=== PATIENT | female | born 1980 | race Caucasian/White ===

== ENCOUNTER 2017-03-13 17:05 | Inpatient (IN) | payer MEDICARE, OTHER ==
[~2017-03-13] VITALS: Ht 162.6 cm; Wt 65.9 kg
[~2017-03-13 17:05] MED LIST: AZAT50TA PO; CLON1TAB PO; DRON5CAP2 PO; HALO5TAB8 PO; HYDR200T4 PO; LIPA1CAP15 PO; MILN50TA PO; OXYC-34 PO; PANT20TA3 PO; PREG50CA PO; SERT50TA PO; VARE1TAB PO
--- NOTE | 2017-03-13 17:05 | NUR ---
BBRA 89 FOR HIGH BLOOD SUGAR "STATES HI" ON ACCUCHECK MACHINE. NAD NOTED. PT AAO X4, AMB WITH STEADY GAIT. RR EVEN AND UNLABORED. VSS. PENDING MD FERNANDEZ.
--- NOTE | 2017-03-13 17:45 | NUR ---
URINE OBTAINED SENT TO LAB
[2017-03-13] MEDS ORDERED: IV NS 0.9% 1,000 ML BAG IV ONE (18:00)
--- NOTE | 2017-03-13 18:07 | NUR ---
EKG AT BEDSIDE
[2017-03-13 18:20] LABS: BASOPHILS # (AUTO) 0.1 /CMM (0.0-0.2); BASOPHILS % (AUTO) 1.3 % (0.0-2.0); EOSINOPHILS % (AUTO) 0.5 % (0.0-6.0); HEMATOCRIT 36 % (33-45); HEMOGLOBIN 11.3 g/dL (11.5-14.8); LYMPHOCYTES # (AUTO) 1.7 /CMM (0.8-4.8); LYMPHOCYTES % (AUTO) 22.4 % (20.0-44.0); MEAN CORPUSCULAR HEMOGLOBIN 32 PG (26.0-33.0); MEAN CORPUSCULAR HGB CONC 31 g/dl (31.0-36.0); MEAN CORPUSCULAR VOLUME 102 fL (82-100); MONOCYTES # (AUTO) 0.7 /CMM (0.1-1.30); MONOCYTES % (AUTO) 8.7 % (2.0-12.0); NEUTROPHILS # (AUTO) 5.2 /CMM (1.8-8.9); NEUTROPHILS % (AUTO) 67.1 % (43.0-81.0); PLATELET COUNT (AUTO) 233 /CMM (150-450); RDW COEFFICIENT OF VARIATION 14.5 (11.5-15.0); RED BLOOD CELL COUNT(AUTO) 3.58 MIL/uL (4.0-5.2); WHITE BLOOD COUNT (AUTO) 7.7 K/uL (4.3-11.0)
[2017-03-13 18:35] LABS: INR 0.93 (0.87-1.13); PROTHROMBIN TIME 9.7 SECS (9.5-12.7)
[2017-03-13 18:37] LABS: MAGNESIUM 1.8 mg/dL (1.8-2.4); PHOSPHORUS 4.6 mg/dL (2.5-4.9)
[2017-03-13 18:50] LABS: ALANINE AMINOTRANSFERASE 47 U/L (12-78); ALBUMIN 3.3 g/dL (3.4-5.0); ALKALINE PHOSPHATASE 216 U/L (46-116); ASPARTATE AMINOTRANSFERASE 41 U/L (15-37); BILIRUBIN,DIRECT 0.1 mg/dL (0.0-0.2); BILIRUBIN,TOTAL 0.2 mg/dL (0.2-1.0); CALCIUM, SERUM 8.3 mg/dL (8.5-10.1); CARBON DIOXIDE 23 mmol/L (21-32); CHLORIDE 89 mmol/L (98-107); CREATININE 1.6 mg/dL (0.6-1.3); POTASSIUM 3.5 mmol/L (3.5-5.1); SODIUM SERUM 122 mmol/L (136-145); UREA NITROGEN, BLOOD 11 mg/dL (7-18)
--- NOTE | 2017-03-13 18:55 | NUR ---
RT AT BEDSIDE FOR ABG
[2017-03-13 18:57] LABS: GLUCOSE 732 mg/dL (74-106)
[2017-03-13 19:03] LABS: TOTAL PROTEIN, SERUM 6.9 g/dL (6.4-8.2)
[2017-03-13 19:09] LABS: ABG BASE EXCESS -3.7 mmol/L; ABG OXYGEN SATURATION 82.3 % (92.0-98.5); ABG PCO2 41.5 mmHg (35.0-45.0); ABG PO2 48.9 mmHg (75.0-100.0); AaDO2 51.1 mmHg; COHb 2.6 % (0.5-1.5); MetHb 0.1 % (0.0-1.5); O2Hb 80.1 % (94.0-97.0); SITE, ABG Left Femoral; VENT MODE, BG ROOM AIR
--- NOTE | 2017-03-13 19:13 | NUR ---
RT MD SHANTA PICKENS WITH VENOUS ABG RESULTS.
--- NOTE | 2017-03-13 19:27 | NUR ---
CALLED [employer], TURNER MACHINE OPERATOR WAS PAGED.
[2017-03-13 19:30] LABS: TROPONIN I < 0.017 ng/mL (0.00-0.056)
[2017-03-13] MEDS ORDERED: MEROPENEM 500 MG in IV NS 0.9% 50 ML IV ONE (19:30)
[2017-03-13] MEDS ORDERED: VANCOMYCIN 1 GM in IV D5W 250 ML IV ONE (19:30)
[2017-03-13] MEDS ORDERED: INSULIN ASPART HUMALOG/NOVOLOG 100 UNIT/ML CARTRIDGE SQ ONE (19:47)
--- NOTE | 2017-03-13 20:01 | NUR ---
PATIENT WILL BE ADMITTED INTO ROOM 313-2.
[2017-03-13] MEDS ORDERED: HYDROCODONE/APAP 5/325MG 1 EACH TABLET PO PRN (20:30)
[2017-03-13] MEDS ORDERED: ONDANSETRON HCL/PF 4 MG/2 ML VIAL IVP PRN (20:30)
[2017-03-13] MEDS ORDERED: INSULIN REGULAR, HUMAN 100 UNIT/ML 3 ML VIAL SQ PRN (20:30)
[2017-03-13] MEDS ORDERED: MAG HYDROX/AL HYDROX/SIMETH 30 ML UDC PO PRN (20:30)
[2017-03-13] MEDS ORDERED: ZOLPIDEM TARTRATE 5 MG TABLET PO PRN (20:30)
[2017-03-13] MEDS ORDERED: Z GUARD REMEDY 2 OZ OINT TP PRN (20:30)
[2017-03-13] MEDS ORDERED: MAGNESIUM HYDROXIDE 30 ML UDC PO PRN (20:30)
[2017-03-13] MEDS ORDERED: IV NS 0.9% 1,000 ML IV SCH (20:30)
[2017-03-13] MEDS ORDERED: ACETAMINOPHEN 325 MG TABLET PO PRN (20:30)
[2017-03-13] MEDS ORDERED: PANTOPRAZOLE 40 MG TABLET.DR PO ONE (20:30)
[2017-03-13] MEDS ORDERED: DEXTROSE 50%-WATER 50 ML DISP.SYRIN IV PRN (20:30)
[2017-03-13 20:32] LABS: APPEARANCE,URINE CLEAR (CLEAR); BILIRUBIN,URINE NEGATIVE (NEGATIVE); BLOOD, URINE NEGATIVE Ery/uL (NEGATIVE); COLOR,URINE YELLOW (YELLOW); KETONES,URINE NEGATIVE (NEGATIVE); LEUKOCYTE ESTERASE ,URINE NEGATIVE (NEGATIVE); NITRITE, URINE NEGATIVE (NEGATIVE); PROTEIN,URINE NEGATIVE (NEGATIVE); UGLUCOSE 3+ mg/dL (NEGATIVE); UROBILINOGEN,URINE 0.2 EU/dL (0.2)
[2017-03-13] MEDS ORDERED: INSULIN REGULAR, HUMAN 100 UNIT/ML 10 ML VIAL ONE (20:32)
[2017-03-13 20:36] LABS: BACTERIA,URINE Few /HPF (None Seen); RBC,URINE 0-2 /HPF (0-2); SQUAMOUS EPITHELIAL CELL,UR Few /HPF (None Seen); WBC,URINE 0-2 /HPF (0-3); YEAST,URINE Few /HPF (None Seen)
--- NOTE | 2017-03-13 20:52 | NUR ---
REPORT GIVEN TO ASHLEY/CHASE
[2017-03-13] MEDS ORDERED: DEXTROSE 50%-WATER 50 ML DISP.SYRIN ONE (20:53)
[2017-03-13] MEDS ORDERED: oxyCODONE/APAP (5/325 MG) 1 UDTAB TABLET PO PRN (21:00)
--- NOTE | 2017-03-13 21:00 | NUR ---
NURSE ASHLEY AGREES TO INFUSE VANCO IV ON THE FLOOR
--- NOTE | 2017-03-13 21:02 | NUR ---
DR WOMACK ON THE PHONE WITH DR MCCORD.
--- NOTE | 2017-03-13 21:03 | NUR ---
PT MEDICATED WITH 2 AMPS D50 AFTER SHE SELF MEDICATED WITH INSULIN PUMP`AND FSBS CHECKED 36. MD AWARE. GIVEN ALSO SANDWICH AND JUICE.
[2017-03-13 21:15] VITALS: BP 152/95
--- NOTE | 2017-03-13 21:15 | NUR ---
TELE CAMELID FIBER SORTER INITIAL NOTES ADMIT PT FROM ER VIA ELA ACCOMPANIED BY ER NURSE AND TECH. DX OF HYPERGLYCEMIA /SEIZURE. PT IS ALERT ORIENTED , ORIENTED WHERE SHE AT AND HOW TO USED THE CALL LIGHT SYSTEM. NO SIGNS OF HYPER GLYCEMIA NOTED. STILL WITH IVF INFUSING ON HER RIGHT HAND, GAUGE 18 NO REDNESS NOTED. BREATHING EVEN AND NON-LABORED. SKIN WARM AND DRY TO TOUCH, ABLE TO AMBULATE WITH SOME ASSISTANCE FOR SAFETY. ASSESSMENT DONE AND RECORDED. KEPT HER WARM AND COMFORTABLE AT ALL TIMES. TELE SINUS RHYTHM HEART RATE 86. PT COMPLAINT OF GENERALIZED PAIN AT THIS TIME.SPOKE TO HER THAT I WILL CHECKED THE ORDER FIRST AND I WILL BE BACK . KEPT HER WARM AND COMFORTABLE AT ALL TIMES. BED ALARM SET FOR SAFETY. PLACE CALL LIGHT AT REACH.
[2017-03-13 21:25] VITALS: BP 152/95
--- NOTE | 2017-03-13 22:10 | NUR ---
MINE SHIFTER/NOTES C/O GENERALIZED PAIN , NORCO TABLET GIVEN ORDERED . WILL CONTINUE TO MONITOR.
[2017-03-14] VITALS: BP 143/87
[2017-03-14] MEDS ORDERED: TRAZODONE 50 MG TABLET PO SCH
[2017-03-14] MEDS ORDERED: TRAZODONE 50 MG TABLET ONE (00:02)
--- NOTE | 2017-03-14 00:05 | NUR ---
CUSTOM GARMENT DESIGNER/NOTES TRAZADONE 225 PO GIVEN ORDERED PER PT REQUESTED AND ORDERED. IVF NS AT 125 ML/HR INFUSING AT THIS TIME. CAREGIVER AT THE BEDSIDE FOR NOW. BLOOD SUGAR ALSO CHECKED 327. SPOKE TO DR MCCORD REGARDING HER BLOOD SUGAR AND HE GAVE ORDERED NOTED AND CARRIED OUT. PT INSULIN PUMP REMOVED BY CAREGIVER. WILL CONTINUE TO MONITOR. PLACE CALL LIGHT AT REACH.
[2017-03-14] MEDS ORDERED: DEXTROSE 50%-WATER 50 ML DISP.SYRIN IV PRN ×2 (00:30→13:00)
[2017-03-14] MEDS ORDERED: INSULIN REGULAR, HUMAN 100 UNIT/ML 3 ML VIAL SQ PRN ×3 (00:30→13:00)
--- NOTE | 2017-03-14 00:35 | NUR ---
PEWTER FINISHER/NOTES SEEN BY DR MCCORD PER PT REQUESTED. HE SPOKE TO THEM REGARDING PT STAYED OVERNIGHT FOR PT SAFETY AND CAREGIVER AND PT UNDERSTOOD WELL . KEPT HER WARM AND COMFORTABLE AT ALL TIMES. PLACE CALL LIGHT AT REACH. WILL CONTINUE TO MONITOR.
[2017-03-14] MEDS ORDERED: INSULIN REGULAR, HUMAN 100 UNIT/ML 3 ML VIAL ONE (00:40)
--- NOTE | 2017-03-14 00:47 | NUR ---
BUDGET COORDINATOR/NOTES BLOOD SUGAR 327, 12 UNITS OF REGULAR INSULIN GIVEN YVONNE SQ ORDERED. NO SIGNS OF HYPER GLYCEMIA NOTED. PT STARTED TO REST NOW, KEPT HER WARM AND COMFORTABLE AT ALL TIMES. TELE SR PER MONITOR. CALL LIGHT AT REACH.
[2017-03-14] MEDS: BLOOD SUGAR DIAGNOSTIC 1 EACH STRIP IN SCH ×2 (00:54→06:13)
[2017-03-14 04:00] VITALS: BP 114/70
[2017-03-14 06:40] LABS: BASOPHILS # (AUTO) 0.1 /CMM (0.0-0.2); BASOPHILS % (AUTO) 0.7 % (0.0-2.0); EOSINOPHILS # (AUTO) 0.2 /CMM (0.0-0.7); EOSINOPHILS % (AUTO) 1.5 % (0.0-6.0); HEMATOCRIT 32 % (33-45); HEMOGLOBIN 10.8 g/dL (11.5-14.8); LYMPHOCYTES # (AUTO) 4.1 /CMM (0.8-4.8); LYMPHOCYTES % (AUTO) 39.2 % (20.0-44.0); MEAN CORPUSCULAR HEMOGLOBIN 33 PG (26.0-33.0); MEAN CORPUSCULAR HGB CONC 34 g/dl (31.0-36.0); MEAN CORPUSCULAR VOLUME 99 fL (82-100); MONOCYTES # (AUTO) 0.9 /CMM (0.1-1.30); MONOCYTES % (AUTO) 8.4 % (2.0-12.0); NEUTROPHILS # (AUTO) 5.2 /CMM (1.8-8.9); NEUTROPHILS % (AUTO) 50.2 % (43.0-81.0); PLATELET COUNT (AUTO) 224 /CMM (150-450); RDW COEFFICIENT OF VARIATION 14.8 (11.5-15.0); RED BLOOD CELL COUNT(AUTO) 3.24 MIL/uL (4.0-5.2); WHITE BLOOD COUNT (AUTO) 10.4 K/uL (4.3-11.0)
[2017-03-14 06:54] LABS: CALCIUM, SERUM 7.6 mg/dL (8.5-10.1); CREATININE 0.9 mg/dL (0.6-1.3); MAGNESIUM 1.8 mg/dL (1.8-2.4); PHOSPHORUS 3.1 mg/dL (2.5-4.9); POTASSIUM 3.5 mmol/L (3.5-5.1)
--- NOTE | 2017-03-14 07:30 | NUR ---
CODING AUDITOR NOTES RECEIVED PATIENT IN BED RESTING, ALERT AND ORIENTED X 2-3. NO ACUTE DISTRESS, NO SOB NOTED. DENIES ANY PAIN OR DISCOMFORT. IV SITE INTACT AND PATENT. KEPT PATIENT SAFE AND COMFORTABLE. BED IN LOW POSITION, SIDERAILS UP X2. CALL LIGHT WITHIN REACH. WILL CONTINUE TO MONITOR ACCORDINGLY.
--- NOTE | 2017-03-14 07:30 | NUR ---
TELE MACHINE MOVER CLOSING NOTES' PT AWAKE AND ALERT CALMED AND QUIET AT THIS TIME SMILING WHEN YOU CALLED HER NAME. IVF STILL INFUSING ON HER RIGHT HAND . BLOOD SUGAR CHECKED DONE 87, NO INSULIN GIVEN AT THIS TIME. NO SIGNS OF HYPOGLYCEMIA NOTED. ALL DUE MEDS GIVEN AND ALL NEEDS MET. SLEPT WELL AFTER TRAZADONE GIVEN LAST NIGHT. STABLE YVONNE THE NIGHT. ENDORSE TO AM NURSE SIMS FOR CONTINUITY OF CARE. PLACE CALL LIGHT AT REACH.
[2017-03-14 08:00] VITALS: BP 105/63
[2017-03-14] MEDS ORDERED: AZATHIOPRINE 50 MG TABLET PO SCH (09:00)
[2017-03-14] MEDS ORDERED: HYDROXYCHLOROQUINE 200 MG TABLET PO SCH (09:00)
[2017-03-14] MEDS ORDERED: PREGABALIN 100 MG CAPSULE PO SCH (09:00)
[2017-03-14] MEDS ORDERED: clonazePAM 1 MG TABLET PO SCH (09:00)
[2017-03-14] MEDS ORDERED: SERTRALINE HCL 50 MG TABLET PO SCH (09:00)
[2017-03-14] MEDS ORDERED: HALOPERIDOL 5 MG TABLET PO SCH (09:00)
[2017-03-14] MEDS ORDERED: DRONABINOL (2.5 MG) 2.5 MG CAPSULE PO SCH (09:00)
[2017-03-14] MEDS ORDERED: MILNACIPRAN HCL 50 MG PO SCH (09:00)
--- NOTE | 2017-03-14 09:35 | NUR ---
RN NOTES PATIENT TOOK OFF TELEMONITOR AND SAID "IM GOING HOME". INSTRUCTED AND EDUCATED PATIENT THAT TELEMONITORING IS IMPORTANT BUT PATIENT REFUSED TO PUT THE MONITOR BACK ON. CEMENT MIXER MADE AWARE. WILL CONTINUE TO MONITOR ACCORDINGLY.
--- NOTE | 2017-03-14 09:36 | NUR ---
RN NOTES PATIENT PULLED IV OUT, NO REDNESS, NO SWELLING, NOT BLEEDING. COVERED WITH GAUZE AND TAPE. WILL CONTINUE TO MONITOR.
[2017-03-14] MEDS: LIPASE/PROTEASE/AMYLASE 1 EACH CAPSULE.DR PO SCH ×2 (09:50→13:27)
--- NOTE | 2017-03-14 10:00 | NUR ---
RN NOTES PATIENT WANTED TO LEAVE AMA. ASK PATIENT ABOUT WHERE SHE'S GOING, PATIENT SAID HER CAREGIVER IS WAITING DOWN STAIRS. ASKED PATIENT TO CALL HER CAREGIVER SO WE CAN TALKED, PATIENT STARTED SIT ON THE FLOOR SAYING "I WANA GO HOME". TRIED TO CALL CAREGIVER BUT NO ANSWER. TALKED CALMLY TO PATIENT AND PATIENT COMPLIED. WENT BACK TO THE ROOM. WILL CONTINUE TO MONITOR ACCORDINGLY.
--- NOTE | 2017-03-14 11:30 | NUR ---
RN NOTES PATIENT IS FOR PSYCH CONSULT WITH DR MARCUS, AND HAS 1:1 SITTER ORDERED
--- NOTE | 2017-03-14 12:22 | NUR ---
RN NOTES DR QUILES WENT TO SEE THE PATIENT. PER MD, PATIENT OK TO EAT, DIABETIC DIET. NEW ORDERS NOTED AND CARRIED OUT.
--- NOTE | 2017-03-14 12:45 | NUR ---
RN NOTES BLOOD SUGAR 387, CAREGIVER WILL GIVE INSULIN VIA PATIENT'S INSULIN PUMP. DR QIULES IS AWARE.
[2017-03-14] MEDS ORDERED: INSULIN DETEMIR 100 UNIT/ML CARTRIDGE SQ SCH (13:00)
[2017-03-14] MEDS ORDERED: BLOOD SUGAR DIAGNOSTIC 1 EACH STRIP IN SCH ×2 (13:00)
--- NOTE | 2017-03-14 14:40 | NUR ---
RN NOTES PATIENT REFUSED EEG AND CT SCAN. PATIENT AWAITING DISCHARGE.
[2017-03-14 14:45] VITALS: BP 133/94
--- NOTE | 2017-03-14 14:45 | NUR ---
RN NOTES DISCHARGE PATIENT IN STABLE CONDITION ACCOMPANIED BY CAREGIVER,BRYSON, VIA WHEELCHAIR. EXITCARE AND DISCHARGE INSTRUCTIONS DONE. DISCHARGE PAPERWORK GIVEN TO CAREGIVER.
== END 2017-03-14 14:30 | disposition home or self-care (01) | DRG 100 ==
LOC: ER 17:09 → TELE 20:21
PROVIDERS: ADMIT Family Medicine; ATTEND Family Medicine
DX: G40.909 Epilepsy, unspecified, not intractable, without status epilepticus (principal); N17.0 Acute kidney failure with tubular necrosis; E44.1 Mild protein-calorie malnutrition; E87.1 Hypo-osmolality and hyponatremia; E87.2 Acidosis; F17.200 Nicotine dependence, unspecified, uncomplicated; F32.9 Major depressive disorder, single episode, unspecified; F25.9 Schizoaffective disorder, unspecified; H54.8 Legal blindness, as defined in USA; J45.909 Unspecified asthma, uncomplicated; G89.29 Other chronic pain; R32 Unspecified urinary incontinence; Z79.4 Long term (current) use of insulin; Z79.899 Other long term (current) drug therapy; Z83.3 Family history of diabetes mellitus; Z86.73 Personal history of transient ischemic attack (TIA), and cerebral infarction without residual deficits; Z96.41 Presence of insulin pump (external) (internal); M79.7 Fibromyalgia; Z91.041 Radiographic dye allergy status; E10.65 Type 1 diabetes mellitus with hyperglycemia; E10.22 Type 1 diabetes mellitus with diabetic chronic kidney disease; I12.9 Hypertensive chronic kidney disease with stage 1 through stage 4 chronic kidney disease, or unspecified chronic kidney disease; N18.3 Chronic kidney disease, stage 3 (moderate); E83.51 Hypocalcemia; M32.9 Systemic lupus erythematosus, unspecified; Z72.0 Tobacco use
CPT/HCPCS: 36415; 36600; 71010-TC; 80048-TC; 80061-TC; 80076-TC; 81000-TC; 82010-TC; 82962-TC; 83605-TC; 83735-TC; 84100-TC; 84484-TC; 85025-TC; 85730-TC; 87040-TC; 87081-TC; 87086-TC; A4216; J1815; J2185; J3370; J7030; J7060; J7500; Q0167; Q0168

== ENCOUNTER 2017-07-14 11:24 | Emergency (ER) | payer MEDICARE, OTHER ==
[~2017-07-14] VITALS: Ht 154.9 cm; Wt 68.0 kg
[2017-07-14] MEDS ORDERED: IV NS 0.9% 1,000 ML BAG IV ONE (12:30)
[2017-07-14] MEDS ORDERED: MORPHINE SULFATE INJ 2 MG/ML DISP.SYRIN IV ONE (12:30)
[2017-07-14] MEDS ORDERED: ONDANSETRON HCL/PF 4 MG/2 ML VIAL IVP ONE (12:30)
[2017-07-14] MEDS ORDERED: ONDANSETRON HCL/PF 4 MG/2 ML VIAL ONE (12:34)
[2017-07-14] MEDS ORDERED: MORPHINE SULFATE INJ 4 MG/ML DISP.SYRIN ONE (12:37)
[2017-07-14 12:46] LABS: CALCIUM, SERUM 8.9 mg/dL (8.5-10.1); CREATININE 1.2 mg/dL (0.6-1.3); POTASSIUM 4.7 mmol/L (3.5-5.1)
[2017-07-14 12:55] LABS: APPEARANCE,URINE Clear (CLEAR); BILIRUBIN,URINE Negative (NEGATIVE); BLOOD, URINE Negative Ery/uL (NEGATIVE); COLOR,URINE Dark (YELLOW); KETONES,URINE Negative (NEGATIVE); LEUKOCYTE ESTERASE ,URINE Small (NEGATIVE); NITRITE, URINE Negative (NEGATIVE); PH,URINE 5.5 (5.0-8.0); PROTEIN,URINE 30 mg/dl (NEGATIVE); UGLUCOSE Negative (NEGATIVE)
[2017-07-14 12:57] LABS: BASOPHILS # (AUTO) 0.1 /CMM (0.0-0.2); BASOPHILS % (AUTO) 0.9 % (0.0-2.0); EOSINOPHILS % (AUTO) 0.6 % (0.0-6.0); HEMATOCRIT 38 % (33-45); HEMOGLOBIN 12.6 g/dL (11.5-14.8); LYMPHOCYTES % (AUTO) 30.7 % (20.0-44.0); MEAN CORPUSCULAR HEMOGLOBIN 33 PG (26.0-33.0); MEAN CORPUSCULAR HGB CONC 33 g/dl (31.0-36.0); MEAN CORPUSCULAR VOLUME 99 fL (82-100); MONOCYTES # (AUTO) 0.5 /CMM (0.1-1.30); NEUTROPHILS % (AUTO) 60.8 % (43.0-81.0); PLATELET COUNT (AUTO) 285 /CMM (150-450); RDW COEFFICIENT OF VARIATION 17.4 (11.5-15.0); RED BLOOD CELL COUNT(AUTO) 3.81 MIL/uL (4.0-5.2); WHITE BLOOD COUNT (AUTO) 6.6 K/uL (4.3-11.0)
[2017-07-14 13:00] LABS: RBC,URINE 0-2 /HPF (0-2)
[2017-07-14 13:01] LABS: BACTERIA,URINE Many /HPF (None Seen); SQUAMOUS EPITHELIAL CELL,UR Few /HPF (None Seen)
[2017-07-14 13:04] LABS: ALBUMIN 3.6 g/dL (3.4-5.0); BILIRUBIN,TOTAL 0.5 mg/dL (0.2-1.0); TOTAL PROTEIN, SERUM 7.2 g/dL (6.4-8.2)
[2017-07-14] MEDS ORDERED: CEFTRIAXONE 2 G in IV D5W 50 ML IV ONE (13:30)
--- NOTE | 2017-07-14 13:32 | NUR ---
xray at bs
--- NOTE | 2017-07-14 15:22 | NUR ---
IV removed. Catheter intact and site benign. Pressure and 4x4 applied to site. No bleeding noted.
--- NOTE | 2017-07-14 15:23 | NUR ---
Patient discharged to home - IN THE CARE OF HER APARTMENT'S UNIX DEVELOPER - SHE STATES THAT HER AND HER HAVE BEEN TAKING TURNS TAKING CARE OF HER FOR MORE THAN 2 YEARS - SHE STATES THAT THE PATIENT HAS BEEN LIVING IN THEIR APARTMENT COMPLEX FOR MORE THAN 2 YEARS; DC HOME in stable condition. Written and verbal after care instructions given. Patient verbalizes understanding of instruction.
[2017-07-14 15:28] VITALS: BP 135/45
== END 2017-07-14 15:30 | disposition home or self-care (01) ==
LOC: ER 11:26
DX: N39.0 Urinary tract infection, site not specified (principal); E11.9 Type 2 diabetes mellitus without complications; J45.909 Unspecified asthma, uncomplicated; F32.9 Major depressive disorder, single episode, unspecified; F17.200 Nicotine dependence, unspecified, uncomplicated; Z88.1 Allergy status to other antibiotic agents; Z88.8 Allergy status to other drugs, medicaments and biological substances
CPT/HCPCS: 36415; 71010-TC; 80048-TC; 80076-TC; 81000-TC; 85025-TC; 87086-TC; 87186-TC; A4606; J0696; J2270; J2405; J7030; J7060; Z7610

== ENCOUNTER 2017-09-11 10:04 | Emergency (ER) | payer MEDICARE, OTHER ==
[~2017-09-11] VITALS: Ht 162.6 cm; Wt 63.5 kg
[~2017-09-11 10:04] MED LIST changes: +OXYC-133 PO; -OXYC-34 PO
--- NOTE | 2017-09-11 10:15 | NUR ---
BBRA 62 FROM APARTMENT C/O GLF THIS AM FELL OUT OF BED. STATES LEFT HEAD, BACK AND LEFT ANKLE PAIN. PATIENT IS A/OX 2-3. BREATHING EVEN AND UNLABORED. NO SOB. VITALS STABLE. SAFETY AND COMFORT MEASURES IN PLACE. AWAITING MD ORDERS.
[2017-09-11] MEDS ORDERED: HYDROCODONE/APAP 10/325MG 1 EA TABLET ONE (10:20)
[2017-09-11] MEDS ORDERED: IV NS 0.9% 500 ML BAG IV ONE (10:30)
[2017-09-11] MEDS ORDERED: HYDROCODONE/APAP 10/325MG 1 EA TABLET PO ONE (10:30)
--- NOTE | 2017-09-11 10:45 | NUR ---
INSERTED IV CATH WITH US GUIDANCE ON RAC, 20 G. BLOOD DRAWN AND SENT TO LAB.
[2017-09-11 10:53] LABS: BASOPHILS % (AUTO) 0.2 % (0.0-2.0); EOSINOPHILS # (AUTO) 0.1 /CMM (0.0-0.7); EOSINOPHILS % (AUTO) 1.3 % (0.0-6.0); HEMATOCRIT 35 % (33-45); HEMOGLOBIN 11.8 g/dL (11.5-14.8); LYMPHOCYTES # (AUTO) 1.5 /CMM (0.8-4.8); LYMPHOCYTES % (AUTO) 28.8 % (20.0-44.0); MEAN CORPUSCULAR HEMOGLOBIN 34 PG (26.0-33.0); MEAN CORPUSCULAR HGB CONC 34 g/dl (31.0-36.0); MEAN CORPUSCULAR VOLUME 100 fL (82-100); MONOCYTES # (AUTO) 0.2 /CMM (0.1-1.30); MONOCYTES % (AUTO) 3.4 % (2.0-12.0); NEUTROPHILS # (AUTO) 3.3 /CMM (1.8-8.9); NEUTROPHILS % (AUTO) 66.3 % (43.0-81.0); PLATELET COUNT (AUTO) 193 /CMM (150-450); RDW COEFFICIENT OF VARIATION 13.8 (11.5-15.0); RED BLOOD CELL COUNT(AUTO) 3.52 MIL/uL (4.0-5.2); WHITE BLOOD COUNT (AUTO) 5.1 K/uL (4.3-11.0)
--- NOTE | 2017-09-11 10:55 | NUR ---
PATIENT MEDICATED PER MD ORDERS.
--- NOTE | 2017-09-11 11:00 | NUR ---
PATIENT TAKEN TO CT VIA WHEELCHAIR.
[2017-09-11 11:04] LABS: CALCIUM, SERUM 8.7 mg/dL (8.5-10.1); CREATININE 1.1 mg/dL (0.6-1.3); POTASSIUM 4.2 mmol/L (3.5-5.1)
--- NOTE | 2017-09-11 11:15 | NUR ---
PATIENT RETURNED FROM CT.
--- NOTE | 2017-09-11 12:46 | NUR ---
[id number] - E[facility] 20 MIN
--- NOTE | 2017-09-11 13:15 | NUR ---
IV removed. Catheter intact and site benign. Pressure and 4x4 applied to site. No bleeding noted.
--- NOTE | 2017-09-11 13:25 | NUR ---
Patient discharged to home in stable condition. Written and verbal after care instructions given. Patient verbalizes understanding of instruction.
[2017-09-11 13:27] VITALS: BP 107/82
== END 2017-09-11 13:28 | disposition home or self-care (01) ==
LOC: ER 10:05
DX: G93.40 Encephalopathy, unspecified (principal); E11.9 Type 2 diabetes mellitus without complications; F32.9 Major depressive disorder, single episode, unspecified; G40.909 Epilepsy, unspecified, not intractable, without status epilepticus; G89.29 Other chronic pain; J45.909 Unspecified asthma, uncomplicated; F17.200 Nicotine dependence, unspecified, uncomplicated; Z86.73 Personal history of transient ischemic attack (TIA), and cerebral infarction without residual deficits; Z87.820 Personal history of traumatic brain injury; Z88.0 Allergy status to penicillin; Z88.1 Allergy status to other antibiotic agents; Z88.8 Allergy status to other drugs, medicaments and biological substances; W06.XXXA Fall from bed, initial encounter; Y93.89 Activity, other specified; Y92.89 Other specified places as the place of occurrence of the external cause; Y99.8 Other external cause status
CPT/HCPCS: 36415; 36569; 70450; 71045; 80048; 82962; 85025; 93005; 96360; 99285; A4606; J7040; Z7610